=== PATIENT | female | born 1975 | race Caucasian/White ===

== ENCOUNTER 2017-05-20 15:28 | Emergency (ER) | payer OTHER ==
[~2017-05-20] VITALS: Ht 167.6 cm; Wt 79.8 kg
[~2017-05-20 15:28] MED LIST: AMOXICILLIN500 MG PO; CELEXA40 MG PO; DEPAKOTE500 MG PO; IRON325 M1 PO; MOTRIN800 MG PO; NAPROSYN500 MG PO; PREDNISONE20 MG PO; SEROQUEL300 MG PO; SEROQUEL50 MG PO; TESSALON PERLE100 MG PO; TRAMADOL HCL50 MG PO; XYZAL5 MG PO; ZITHROMAX250 MG PO
[2017-05-20 17:36] LABS: HEMATOCRIT 39.1 % (36.0-46.0); MCV 85.2 FL (83-99); MEAN PLAT.VOLUME 9.8 uM^3 (9.5-12.4); PLATELET COUNT 130 K/uL (156-360); RBC DIS.WIDTH-CV 13.5 % (11.8-14.6); RBC DIS.WIDTH-SD 42.3 % (39-53); RED BLOOD COUNT 4.59 M/uL (3.80-5.20); WHITE BLOOD COUNT 5.3 K/uL (4.1-10.2)
[2017-05-20 17:47] LABS: CHLORIDE 103 mEq/L (99-109); POTASSIUM 3.6 mEq/L (3.7-5.4); SODIUM 136 mEq/L (136-147)
[2017-05-20 17:49] LABS: GLUCOSE 104 mg/dL (70-99)
[2017-05-20 17:50] LABS: ANION GAP 10 MEQ/L (2-14)
[2017-05-20 17:51] LABS: TOTAL BILIRUBIN 1.7 mg/dL (0.0-1.0)
[2017-05-20 17:53] LABS: ALKALINE PHOSPHATASE 123 IU/L (3-129); GFR ESTIMATE (CALCULATED) > 59 mL/min/
[2017-05-20 17:54] LABS: UREA NITROGEN (BUN) 7 mg/dL (9-23)
[2017-05-20 17:56] LABS: LIPASE 37 U/L (1.0-51.0)
[2017-05-20 18:05] LABS: QUANTITATIVE HCG < 4.0 MIU/ML
[2017-05-20 19:05] LABS: ADD MIUA? YES; BILIRUBIN SMALL; BLOOD LARGE; COLOR AMBER ((YELLOW)); GLUCOSE (STRIP) NEGATIVE; KETONES NEGATIVE; LEUKOCYTES NEGATIVE; NITRITE NEGATIVE; PROTEIN (STRIP) 30; SPECIFIC GRAVITY 1.023 (1.000-1.030)
[2017-05-20 19:19] LABS: INTERNAL CONTROL VALID? YES; MONOSPOT (MONONUCLEOSIS SEROL) NEGATIVE
[2017-05-20] MEDS ORDERED: KEFLEX500 MG PO (19:21)
[2017-05-20 19:43] LABS: BACTERIA RARE /HPF; CALCIUM OXALATE CRYSTALS 4+ /HPF; EPITHELIAL CELLS 1+ /HPF; MUCUS 2+ /LPF; RED BLOOD CELLS TNTC /HPF (0-5); UCUL ADDED? NO; WHITE BLOOD CELLS 0-5 /HPF (0-5)
[2017-05-20 20:12] VITALS: BP 112/64
[2017-05-21 10:03] LABS: HBSG INDEX 0.22
[2017-05-21 10:04] LABS: ANTI-HEPATITIS A VIRUS (IGM) Nonreactive
[2017-05-21 10:05] LABS: ANTI-HEPATITIS B CORE (IGM) Nonreactive; HBC IgM INDEX 0.17
[2017-05-21 10:15] LABS: HPCA INDEX 12.62
== END 2017-05-20 20:14 | disposition home or self-care (01) ==
LOC: EME 15:28
PROVIDERS: Physician Assistant
DX: M79.5 Residual foreign body in soft tissue (principal); R11.2 Nausea with vomiting, unspecified; F14.90 Cocaine use, unspecified, uncomplicated; F12.90 Cannabis use, unspecified, uncomplicated; F17.200 Nicotine dependence, unspecified, uncomplicated
CPT/HCPCS: 71010; 73080; 80053; 80074; 81003; 83690; 84702; 85027; 86308; 87040; 99281; 99283; G0480